=== PATIENT | female | born 1970 | race Caucasian/White ===

== ENCOUNTER 2017-10-26 16:20 | Outpatient (CLI) | payer BC ==
--- NOTE | 2017-10-26 17:59 | RAD ---
LEFT KNEE FOUR VIEW 10/26/17 HISTORY: Rolled knee. Pain. COMPARISON: None. FINDINGS: No acute fracture or malalignment. No significant joint effusion. Small medial compartment osteophytes are present. There are also osteophytes of the medial tibial spi ne. IMPRESSION: No acute fracture or malalignment. POS: [facility] [place]
== END 2017-10-26 16:21 | disposition home or self-care (01) ==
LOC: MADRAD 16:20
PROVIDERS: ATTEND Family Medicine
DX: M25.562 Pain in left knee (principal)

== ENCOUNTER 2020-02-13 15:39 | Outpatient (CLI) | payer BC, OTHER ==
--- NOTE | 2020-02-13 16:00 | RAD ---
EXAM: CHEST TWO VIEWS: 02/13/20 HISTORY: Dyspnea, exposure to COVID. FINDINGS: Horizontal transverse artifact is noted overlying the upper and lower chest. Heart size is within no rmal limits. The lungs appear clear of acute process. IMPRESSION: No overt confluent pneumonia or acute edema or pleural effusion. No cardiomegaly. If patient develops progressive symptoms, short term follow-up is suggested. POS: [facility]
== END 2020-02-13 15:40 | disposition home or self-care (01) ==
LOC: MADRAD 15:39
PROVIDERS: ATTEND Family Medicine
DX: R06.00 Dyspnea, unspecified (principal); Z20.828 Contact with and (suspected) exposure to other viral communicable diseases
CPT/HCPCS: 71046

== ENCOUNTER 2020-12-04 17:26 | Outpatient (CLI) | payer BC | END 2020-12-04 17:27 | disposition home or self-care (01) | LOC: MADRAD 17:26 | PROVIDERS: ATTEND Family Medicine | DX: R06.02 Shortness of breath (principal); B34.9 Viral infection, unspecified; R91.8 Other nonspecific abnormal finding of lung field | CPT/HCPCS: 71046 ==

== ENCOUNTER 2020-12-17 10:19 | Outpatient (CLI) | payer BC | END 2020-12-17 10:20 | disposition home or self-care (01) | LOC: MADRAD 10:19 | PROVIDERS: ATTEND Family Medicine | DX: U07.1 COVID-19 (principal); J12.82 Pneumonia due to coronavirus disease 2019 | CPT/HCPCS: 71046 ==

== ENCOUNTER 2021-07-28 16:14 | Outpatient (CLI) | payer BC | END 2021-07-28 16:15 | disposition home or self-care (01) | LOC: MADRAD 16:14 | PROVIDERS: ATTEND Family Medicine | DX: J20.9 Acute bronchitis, unspecified (principal) | CPT/HCPCS: 71046 ==